=== PATIENT | female | born 1975 | race Caucasian/White ===

== ENCOUNTER 2017-12-17 16:41 | Emergency (ER) | payer OTHER ==
--- NOTE | 2017-12-17 17:20 | EDPHY ---
H & P Stated Complaint: fell off ladder at work, hit head on ground - Personal History LMP (Females 10-55): Hysterectomy - Medical/Surgical History Hx Asthma: No Hx Chronic Respiratory Disease: No Hx Diabetes: No Hx Cardiac Disease: No Hx Renal Disease: No Hx Cirrhosis: No Hx Alcoholism: No Hx HIV/AIDS: No Hx Splenectomy or Spleen Trauma: No Other PMH: phil, tonsilectomy - Social History Smoking Status: Current some day smoker Time Seen by Provider: 12/17/17 17:04 HPI/ROS: CHIEF COMPLAINT: Head injury, headache HISTORY OF PRESENT ILLNESS: 42-year-old female, no anticoagulant use, arrives via private vehicle complaining of severe headache which started after she fell approximately 5 ft impacting the occiput of her head onto a firm grassy surface. This occurred while she was at work working on a vehicle, was walking down a ladder when she missed the last step and sustained a mechanical fall. This was not a syncopal episodes. No loss of consciousness. No midline C- spine pain. No peripheral paresthesia, weakness, numbness. No alcohol or drug use. She is complaining of severe, nonprogressive non thunderclap headache which did not pre CT incident. Patient works for [employer] is scheduled to leave this evening to monitor her [place] condition PRIMARY CARE PROVIDER:Worker's compensation REVIEW OF SYSTEMS: 10 systems reviewed and negative with the exception of the elements mentioned in the history of present illness PAST MEDICAL/SURGICAL HISTORY: no anticoagulant use, no relevant medical/ surgical history SOCIAL HISTORY: denies alcohol use at time of incident PHYSICAL EXAM 1) GENERAL: Well-developed, well-nourished, alert and oriented. Appears uncomfortable. Answering questions appropriately. 2) HEAD: Normocephalic, left occipital hematoma 3) HEENT: Pupils equal, round, reactive to light bilaterally. Negative Horners. Nasopharynx, oropharynx, clear. No deformity or angulation of nose. No septal hematoma. No rhinorrhea. No oral trauma. Ears bilaterally with normal tympanic membranes. No hemotympanum. No fluid or blood in the external auditory canal. No raccoon eyes. No Kirkpatrick sign. Teeth are normally aligned with no gross malocclusion, TMJ bilaterally nontender, facial bones nontender including the zygomatic arch, maxilla mandible. 4) NECK: No cervical collar is on. Posterior cervical spine is nontender, no stepoff, no effusion. Full range of motion which does not elicit any midline cervical spine pain, no posterior midline tenderness, no step-off. 5) LUNGS: Clear to auscultation bilaterally, no wheezes, no rhonchi, no retractions. No obvious signs of trauma. No chest wall pain. No flaring, no grunting. Moving symmetrically. No crepitus. 6) HEART: [Regular rate and rhythm, 7) ABDOMEN: No guarding, no rebound, no focal tenderness, no peritoneal signs, no signs of trauma, no ecchymosis 8) MUSCULOSKELETAL: Moving all extremities, no focal areas of tenderness, no obvious trauma. 9) BACK:.No midline vertebral tenderness, no fluctuance, no step-off, no obvious trauma, no visual or palpable abnormality. Specifically attention focused on the coccyx sacrum lumbar spine and pelvis which is nontender midline. 10) SKIN: No laceration. No abrasion 11) NEURO: Awake, alert, and oriented to person, place and time. Answers questions appropriately. There were no obvious focal neurologic abnormalities. No cerebellar dysfunction. Cranial nerves 2 through to 12 intact. Normal steady gait. Upper and lower extremities bilaterally with strength 5 / 5, reflexes 2+. DIFFERENTIAL DIAGNOSIS: Not necessarily in any particular order, my differential diagnosis includes, but is not limited to, concussion, skull fracture, intraparenchymal contusion, subarachnoid, subdural and epidural hematoma. The patient understands that this diagnosis is provisional and can never be 100% accurate. (Tanika Lindsey) Constitutional: Initial Vital Signs Temperature (C) 36.6 C 12/17/17 16:44 Heart Rate 102 H 12/17/17 16:44 Respiratory Rate 18 12/17/17 16:44 Blood Pressure 121/97 H 12/17/17 16:44 O2 Sat (%) 98 12/17/17 16:44 O2 Delivery Mode Room Air Allergies/Adverse Reactions: oseltamivir [From Tamiflu] Allergy (Verified 12/17/17 16:43) tetracycline Allergy (Verified 12/17/17 16:43) Home Medications: Medication Instructions Recorded ESTRADIOL ACETATE 12/17/17 lamOTRIGine 12/17/17 Medical Decision Making - Diagnostics Imaging Results: Imaging Impressions Head CT 12/17/17 17:16 Impression: Normal. Results called and discussed with Gregory Lindsey PA-C, at 12/17/2017 17:45. Images reviewed myself (Tanika Lindsey) ED Course/Re-evaluation: 5:16 p.m.: Head CT ordered in this patient for trauma for the following indication: severe headache, fall greater than 3 ft. Indications risks benefits discussed with patient and she consents 5:56 p.m. Patient was re-evaluated. Discussed her negative head CT imaging. She is answering questions appropriately remains with a nonfocal neurologic exam. Plan will be discharged with my usual and customary head injury precautions and instructions. She is leaving this [place] however will stay in urban areas in [facility] with medical access. She feels comfortable being discharged. (Tanika Lindsey) I did not see this patient while she was in the emergency department. However her care was discussed with the PA while the patient was in the department. I agree with treatment plan and management (Amadou Rabago) - Data Points Medications Given: Discontinued Medications Hydrocodone Bitart/Acetaminophen ([place] 5/325) 1 tab PO EDNOW ONE Stop: 12/17/17 18:00 Last Admin: 12/17/17 18:04 Dose: Not Given Departure - Departure Disposition: Home, Routine, Self-Care Clinical Impression: Head injury due to trauma Qualifiers: Encounter type: initial encounter Qualified Code(s): S09.90XA - Unspecified injury of head, initial encounter Condition: Good Instructions: Concussion (ED), Head Injury (ED) Additional Instructions: ALTHOUGH THERE IS NO EVIDENCE OF SERIOUS HEAD INJURY AT THIS TIME, DELAYED SIGNS CAN APPEAR 24 TO 48 HOURS AFTER INJURY. PLEASE RETURN TO THE EMERGENCY DEPARTMENT (ED) IMMEDIATELY IF YOU HAVE INCREASED HEADACHE, PERSISTENT HEADACHE , VOMITING, WEAKNESS, CONFUSION OR VISUAL PROBLEMS. WE RECOMMEND THAT YOU DO NOT RESUME CONTACT SPORTS OR ACTIVITIES THAT TAKE COORDINATION OR BALANCE SUCH SKIING OR RIDING A BICYCLE UNTIL CLEARED TO DO SO BY YOUR DOCTOR OR BY A NEUROLOGIST. Referrals: Montse Van MD [Medical Doctor] - 5-7 days, call for appt.
[2017-12-17] MEDS ORDERED: HYDROCODONE/APAP 5/325 TAB PO ONE (17:59)
[2017-12-17 18:06] VITALS: BP 134/106
== END 2017-12-17 18:07 | disposition home or self-care (01) ==
DX: R51 Headache (principal); S09.90XA Unspecified injury of head, initial encounter; W11.XXXA Fall on and from ladder, initial encounter; Y92.59 Other trade areas as the place of occurrence of the external cause; F17.200 Nicotine dependence, unspecified, uncomplicated